=== PATIENT | male | born 1990 | race Hispanic/Latino ===

== ENCOUNTER 2020-05-17 10:53 | Inpatient (IN) | payer OTHER ==
[~2020-05-17] VITALS: Ht 188 cm; Wt 154.2 kg
[2020-05-17] MEDS ORDERED: SODIUM CHLORIDE 0.9% 1000ML 1,000 ML IV STA (11:09)
[2020-05-17] MEDS ORDERED: PANTOPRAZOLE 40 MG 10ML VIAL IV STA (11:09)
[2020-05-17] MEDS: CEFTRIAXONE SOD 1 GM/NS 50 ML 50 ML IV SCH (12:14)
[2020-05-17 12:30] LABS: BASOPHILS % 0.4 % (0.0-1.0); HEMATOCRIT 46.5 % (38.2-49.6); HEMOGLOBIN 15.7 g/dL (14.0-18.0); LYMPHOCYTES # (AUTO) 1.6 (1.0-3.2); LYMPHOCYTES % 30.6 % (18.0-39.1); MEAN CORPUSCULAR HEMOGLOBIN 30.7 pg (28-32); MEAN CORPUSCULAR HGB CONC 33.8 g/dL (31-35); MONOCYTES # (AUTO) 0.3 (0.2-0.8); MONOCYTES % 5.2 % (4.4-11.3); NEUTROPHILS # (AUTO) 3.3 (2.1-6.9); NEUTROPHILS % 63.2 % (38.7-80.0); PLATELET COUNT 155 x10e3/uL (140-360); RED BLOOD COUNT 5.11 x10e6/uL (4.3-5.7)
--- NOTE | 2020-05-17 12:33 | Diagnostic Imaging Report ---
EXAMINATION: CHEST SINGLE (PORTABLE) INDICATION: Hemoptysis, pneumonia COMPARISON: None FINDINGS: LINES/TUBES:None LUNGS:The lungs are moderately inflated. Hazy bilateral left greater than right airspace opacities. PLEURA:No pleural effusion or pneumothorax. MEDIASTINUM:The cardiomediastinal silhouette appears normal in size and shape. BONES/SOFT TISSUES:No acute osseous injury. ABDOMEN:No free air under the diaphragm. IMPRESSION: Hazy left greater than right airspace opacities compatible with provided history of pneumonia. Signed by: Cyn Sue MD on 05/17/2020 12:30 PM
[2020-05-17] MEDS ORDERED: SODIUM CHLORIDE 0.9% 1000ML 1,000 ML IV SCH (12:45)
[2020-05-17 12:51] LABS: INR 0.82; PROTHROMBIN TIME 11.8 seconds (11.9-14.5)
[2020-05-17 12:52] LABS: PARTIAL THROMBOPLASTIN TIME 29.5 seconds (23.8-35.5)
--- NOTE | 2020-05-17 12:56 | Emergency Department Note ---
History of Present Illnes History of Present Illness Chief Complaint: COVID PUI History of Present Illness This is a 29 year old male HERE FOR COUGH X5 DAYS THEN SPITTING UP BLOODY SPUTUM TODAY, SOB WITH MINIMAL EXERTION, CALLED PCP AND WAS ADVISED TO COME TO ER TO HAVE HGB CHECKED. NO OTHER COMPLAINTS. Historian: Patient Arrival Mode: Car Varnishing Unit Operator Required: No Onset (how long ago): day(s) (5) Location: NO PAIN Radiation: Reports non-radiation Severity: moderate Onset quality: gradual Timing of current episode: constant Progression: worsening Chronicity: new Context: Denies recent illness Relieving factors: none Exacerbating factors: none Associated symptoms: Reports denies other symptoms Past Medical/Family History Physician Review I have reviewed the patient's past medical and family history. Any updates have been documented here. Past Medical History Recent Fever: Yes Clinical Suspicion of Infectio: Yes New/Unexplained Change in Ment: No Past Medical History: None Past Surgical History: None Social History Smoking Cessation: Never Smoker Counseling Performed: No Alcohol Use: Occasional Any Illegal Drug Use: No TB Exposure/Symptoms: No Physically hurt or threatened: No Other Any Pre-Existing Lines (PICC,: No Is patient up to date on immun: No Last Flu: no Last Pneumovax: no Review of Systems Review of Systems Constitutional: Reports chills, Reports weakness EENTM: Reports no symptoms Cardiovascular: Reports no symptoms Respiratory: Reports cough, Reports hemoptysis, Reports dyspnea Gastrointestinal: Reports no symptoms Genitourinary: Reports no symptoms Musculoskeletal: Reports no symptoms Integumentary: Reports no symptoms Neurological: Reports no symptoms Psychological: Reports no symptoms Endocrine: Reports no symptoms Hematological/Lymphatic: Reports no symptoms Physical Exam Related Data Allergies: Coded Allergies: No Known Allergies (Unverified , 05/17/20) Triage Vital Signs Vital Signs Date Time Temp Pulse Resp B/P (MAP) Pulse Ox O2 Delivery O2 Flow Rate FiO2 05/17/20 10:55 100.0 92 24 126/81 93 Vital signs reviewed: Yes Physical Exam CONSTITUTIONAL Constitutional: Present well-developed, Present well-nourished HENT HENT: Present normocephalic, Present atraumatic, Present oropharynx clear/moist, Present nose normal HENT L/R: Present left ext ear normal, Present right ext ear normal EYES Eyes: Reports PERRL, Reports conjunctivae normal NECK Neck: Present ROM normal PULMONARY Pulmonary: Present effort normal, Present other (DECR BS'S THROUGHOUT) CARDIOVASCULAR Cardiovascular: Present regular rhythm, Present heart sounds normal, Present capillary refill normal, Present normal rate GASTROINTESTINAL Abdominal: Present soft, Present nontender, Present bowel sounds normal GENITOURINARY Genitourinary: Present exam deferred SKIN Skin: Present warm, Present dry MUSCULOSKELETAL Musculoskeletal: Present ROM normal NEUROLOGICAL Neurological: Present alert, Present oriented x 3, Present no gross motor or sensory deficits PSYCHOLOGICAL Psychological: Present mood/affect normal, Present judgement normal Results Laboratory Result Diagram: 05/17/20 1155 Laboratory Laboratory Tests Test 05/17/20 11:55 White Blood Count 5.19 x10e3/uL (4.8-10.8) Red Blood Count 5.11 x10e6/uL (4.3-5.7) Hemoglobin 15.7 g/dL (14.0-18.0) Hematocrit 46.5 % (38.2-49.6) Mean Corpuscular Volume 91.0 fL (81-99) Mean Corpuscular Hemoglobin 30.7 pg (28-32) Mean Corpuscular Hemoglobin Concent 33.8 g/dL (31-35) Red Cell Distribution Width 13.0 % (11.7-14.4) Platelet Count 155 x10e3/uL (140-360) Neutrophils (%) (Auto) 63.2 % (38.7-80.0) Lymphocytes (%) (Auto) 30.6 % (18.0-39.1) Monocytes (%) (Auto) 5.2 % (4.4-11.3) Eosinophils (%) (Auto) 0.0 % (0.0-6.0) Basophils (%) (Auto) 0.4 % (0.0-1.0) Neutrophils # (Auto) 3.3 (2.1-6.9) Lymphocytes # (Auto) 1.6 (1.0-3.2) Monocytes # (Auto) 0.3 (0.2-0.8) Eosinophils # (Auto) 0.0 (0.0-0.4) Basophils # (Auto) 0.0 (0.0-0.1) Absolute Immature Granulocyte (auto 0.03 x10e3/uL (0-0.1) Lab results reviewed: Yes Imaging Imaging results reviewed: Yes Impressions Procedure: [id number] DX/CHEST SINGLE (PORTABLE) Exam Date: 05/17/20 Exam Time: 1214 REPORT STATUS: Signed EXAMINATION: CHEST SINGLE (PORTABLE) INDICATION: Hemoptysis, pneumonia COMPARISON: None FINDINGS: LINES/TUBES:None LUNGS:The lungs are moderately inflated. Hazy bilateral left greater than right airspace opacities. PLEURA:No pleural effusion or pneumothorax. MEDIASTINUM:The cardiomediastinal silhouette appears normal in size and shape. BONES/SOFT TISSUES:No acute osseous injury. ABDOMEN:No free air under the diaphragm. IMPRESSION: Hazy left greater than right airspace opacities compatible with provided history of pneumonia. Signed by: Cyn Sue MD on 05/17/2020 12:30 PM Procedures 12 Lead ECG Interpretation ECG Interpretation : ECG: ECG 1 Varnishing Unit Operator: Interpreted by ED physician Date: May 17, 2020 Time: 11:56 Rhythm: sinus rhythm Rate: normal (90) QRS axis: left ST segments normal: Yes T waves normal: Yes Other findings: LVH Clinical Impression: abnormal ECG Assessment & Plan Medical Decision Making MDM LIKELY COVID, COUGH/HEMOPTYSIS AND SOB - WHEN I WALKED PT IN-PLACE FOR 1 MIN, HE BECAME MODERATELY TACHYPNEIC AND O2 SAT WENT TO 88% ON RA - CHECK CBC, CHEM'S, ECG, CARDIAC ENZYMES, BLD CX'S, LACTIC, UA/CX, COVID SWAB - R/O PNEUMONIA, COVID19, CHF, STEMI/NSTEMI, ELECTROLYTE ABNL Reassessment Reassessment ADMIT DR MADSEN, CONSULT TO ELLEN JOHNSON (I SPOKE WITH ALL) Assessment & Plan Final Impression: (1) Pneumonia (2) Hypoxia Depart Disposition: ADMITTED Last Vital Signs Date Time Temp Pulse Resp B/P (MAP) Pulse Ox O2 Delivery O2 Flow Rate FiO2 05/17/20 12:13 100.8 86 18 104/59 90 Medications in the ED Pantoprazole Sodium 40 mg ONCE STAT IV Last administered on 05/17/20at 12:14; Admin Dose 40 MG; Start 05/17/20 at 11:09; Stop 05/17/20 at 11:23; Status DC Sodium Chloride 1,000 ml @ 0 mls/hr Q0M STAT IV Last administered on 05/17/20at 12:14; Admin Dose 999 MLS/HR; Start 05/17/20 at 11:09; Stop 05/17/20 at 11:23; Status DC Ceftriaxone Sodium 50 ml @ 100 mls/hr Q24H IV Last administered on 05/17/20at 12:14; Admin Dose 100 MLS/HR; Start 05/17/20 at 11:30; Stop 05/24/20 at 11:29 Azithromycin 250 ml @ 200 mls/hr DAILY IV ; Start 05/17/20 at 12:00; Stop 05/24/20 at 11:59 CUONG SHEPHERD MD May 17, 2020 12:56
[2020-05-17 13:06] LABS: ALANINE AMINOTRANSFERASE 94 IU/L (0-55); ALBUMIN 3.6 g/dL (3.5-5.0); ALBUMIN/GLOBULIN RATIO 1.1 (0.8-2.0); ALKALINE PHOSPHATASE 45 IU/L (40-150); ANION GAP 14.8 mmol/L (8-16); BLOOD UREA NITROGEN 8 mg/dL (7-26); BUN/CREATININE RATIO 10 (6-25); CALCIUM 8.7 mg/dL (8.4-10.2); CARBON DIOXIDE 27 mmol/L (22-29); CHLORIDE 101 mmol/L (98-107); CREATINE KINASE 372 IU/L (30-200); CREATININE, SERUM 0.79 mg/dL (0.72-1.25); EST GLOMERULAR FILTRATION RATE > 60 ML/MIN (60-); POTASSIUM 3.8 mmol/L (3.5-5.1); SODIUM 139 mmol/L (136-145)
[2020-05-17 13:10] LABS: B-TYPE NATRIURETIC PEPTIDE2 < 10.0 pg/mL (0-100)
--- NOTE | 2020-05-17 13:19 | NUR ---
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
[2020-05-17 13:20] LABS: GLUCOSE 96 mg/dL (74-118)
--- NOTE | 2020-05-17 13:38 | NUR ---
REPORT CALLED TO [facility] IN COVID UNIT.
[2020-05-17] MEDS: AZITHROMYCIN 500MG/NS 250 ML 250 ML IV SCH (14:01)
[2020-05-17 15:14] VITALS: BP 100/62
[2020-05-17 15:20] VITALS: BP 100/62
[2020-05-17 15:25] VITALS: BP 100/62
[2020-05-17] MEDS ORDERED: ZOLPIDEM TARTRATE 5 MG TAB PO PRN ×2 (15:30→21:00)
[2020-05-17] MEDS: GUAIFENESIN/CODEINE 10 ML CUP PO PRN (15:56)
[2020-05-17] MEDS: ACETAMINOPHEN 325 MG TAB PO PRN (15:56)
--- NOTE | 2020-05-17 18:52 | Consultation ---
DATE OF CONSULTATION: Pulmonary Critical Care Consultation CHIEF COMPLAINT: Fever, dyspnea, and hemoptysis. HISTORY OF PRESENT ILLNESS: The patient is a 29-year-old man. He reports being ill for about a week. He has had fevers. He has some mild dyspnea. He also had a COVID test that was positive. Today, he had small amount of hemoptysis. He called his primary doctor, who encouraged him to go to the emergency department. PAST SURGICAL HISTORY: None. PAST MEDICAL HISTORY: 1. No prior history of respiratory problems. 2. No diabetes. 3. No hypertension. ALLERGIES: NO KNOWN DRUG ALLERGIES. FAMILY HISTORY: Noncontributory. SOCIAL HISTORY: The patient does not smoke. He does not vape. He is not a drinker. REVIEW OF SYSTEMS: He reports fevers. There are no headaches. He has no neck pain. He has no chest pain. He does note some cough with some mild hemoptysis. He has some dyspnea. He has no abdominal pain. He has no nausea or vomiting. He does not complain of any leg edema. PHYSICAL EXAMINATION: VITAL SIGNS: The patient is afebrile. The blood pressure is 100/62 and saturation is 98% on 2 L. HEENT: Shows no facial swelling or erythema. CARDIAC: Reveals regular rate and rhythm with normal S1 and S2. LUNGS: Auscultation of lungs reveals clear breath sounds bilaterally. There is no wheezing. ABDOMEN: Soft and nontender. There is no rebound or guarding. EXTREMITIES: Shows no leg edema or calf tenderness. There is no cyanosis or clubbing. SKIN: Shows no rashes. NEUROLOGICAL: Shows no focal abnormalities. LABORATORY DATA: White blood cell count is 5.2 and the hemoglobin is 15.7. The platelet count is 155. BUN to creatinine ratio is normal. Other electrolytes are within normal limits. COVID-19 test is pending. RADIOGRAPHIC DATA: Chest x-ray shows hazy left greater than right airspace opacities. IMPRESSION: Viral pneumonia and COVID-19 infection. PLAN: 1. Judicious use of IV fluids. 2. Antibiotics. 3. Guaifenesin with codeine. 4. DVT prophylaxis. 5. Oxygen as needed. Brad Mckeon MD [facility]ATH[facility] /[id number]
[2020-05-17 18:53] LABS: CLARITY,URINE CLEAR (CLEAR); COLOR,URINE YELLOW (YELLOW); LEUKOCYTE ESTERASE ,URINE NEGATIVE (NEGATIVE); NITRITE,URINE NEGATIVE (NEGATIVE)
[2020-05-17 18:54] LABS: BILIRUBIN,URINE NEGATIVE (NEGATIVE); KETONES,URINE 1+ (NEGATIVE); PROTEIN,URINE DIPSTICK NEGATIVE (NEGATIVE); URINE UROBILINOGEN 1 mg/dL (0.2 - 1)
[2020-05-17 19:04] LABS: BACTERIA,URINE FEW /HPF; EPITHELIAL CELLS,URINE FEW /LPF; RBC,URINE 0-5 /HPF (0-5)
[2020-05-17 20:00] VITALS: BP 98/58
[2020-05-17] MEDS ORDERED: ENOXAPARIN SOD INJ 40 MG/0.4 ML SYR SC SCH ×2 (21:00)
[2020-05-17] MEDS: FAMOTIDINE 20 MG/2 ML VIAL IV SCH (21:00)
[2020-05-17] MEDS: ENOXAPARIN INJ 80 MG/0.8 ML SYR SC SCH (21:00)
[2020-05-17] MEDS ORDERED: HYDRALAZINE HCL 20 MG/ML VIAL IV PRN (21:15)
[2020-05-17] MEDS ORDERED: ONDANSETRON HCL INJ 2MG/ML 2ML 2 MG/ML VIAL IV PRN (21:15)
[2020-05-17 21:36] VITALS: BP 98/58
--- NOTE | 2020-05-17 22:39 | Consultation ---
DATE OF CONSULTATION: REASON FOR CONSULTATION: COVID-19 pneumonia, hypoxemia. HISTORY OF PRESENT ILLNESS: This is a very pleasant 29-year-old [place] male, denies any past medical history. He has been sick for 7 days. He went to an outside urgent care few days ago because of having fever. He was told that if he gets short of breath he should go to the hospital. In the last couple of days he started to get worse. The patient came to the emergency room where he was evaluated and he was admitted. He is COVID-19 positive. PAST MEDICAL HISTORY: Denies. PAST SURGICAL HISTORY: Denies. ALLERGIES: NKA. SOCIAL HISTORY: There is no smoking, drug abuse, or alcohol abuse. FAMILY HISTORY: Unremarkable. LABORATORY DATA: Reviewed. Chest x-ray showed hazy bilateral opacities in the lungs. His white count 5.19, hemoglobin 15. Sodium 139, potassium 3.8, creatinine 0.79, his glucose was 96, AST 91, ALT 94. PHYSICAL EXAMINATION: GENERAL: Currently alert, oriented, does not seem in acute distress. VITAL SIGNS: Stable, afebrile. Temperature 100.7, heart rate of 87, respiratory rate 18 on 2 L with O2 sat of 98%. HEENT: Not icteric. NECK: Supple. CHEST: Crackles bilateral. HEART: S1, S2. No murmurs. ABDOMEN: Soft. IMPRESSION: Coronavirus disease-19 pneumonia present on admission, concerned about superimposed bacterial pneumonia. We will put him on Rocephin and azithromycin. We will start him on Lovenox 0.5 mg/kg q.12 hours. Oxygen as needed, vitamin C, vitamin D, zinc supplement. Reassess in the morning. Discussed with the patient. Discussed with medical team. MD JESUS Samaniego/CATHY /[id number]
[2020-05-18] VITALS: BP 108/64
[2020-05-18] MEDS ORDERED: SODIUM CHLORIDE 0.9% 1000ML 0 ML ONE (00:08)
[2020-05-18] MEDS: GUAIFENESIN/CODEINE 10 ML CUP PO PRN ×2 (00:37→11:47)
[2020-05-18 04:00] VITALS: BP 114/65
[2020-05-18 05:41] LABS: BASOPHILS % 0.2 % (0.0-1.0); EOSINOPHILS % 0.2 % (0.0-6.0); HEMATOCRIT 43.8 % (38.2-49.6); HEMOGLOBIN 14.7 g/dL (14.0-18.0); LYMPHOCYTES % 38.1 % (18.0-39.1); MEAN CORPUSCULAR HEMOGLOBIN 31.8 pg (28-32); MEAN CORPUSCULAR HGB CONC 33.6 g/dL (31-35); MEAN CORPUSCULAR VOLUME 94.8 fL (81-99); MONOCYTES # (AUTO) 0.3 (0.2-0.8); MONOCYTES % 5.4 % (4.4-11.3); NEUTROPHILS % 55.7 % (38.7-80.0); PLATELET COUNT 155 x10e3/uL (140-360); RED BLOOD COUNT 4.62 x10e6/uL (4.3-5.7); RED CELL DISTRIBUTION WIDTH 13.3 % (11.7-14.4)
[2020-05-18 06:06] LABS: ALANINE AMINOTRANSFERASE 75 IU/L (0-55); ALBUMIN 3.2 g/dL (3.5-5.0); ALBUMIN/GLOBULIN RATIO 1.1 (0.8-2.0); ALKALINE PHOSPHATASE 39 IU/L (40-150); BLOOD UREA NITROGEN 6 mg/dL (7-26); BUN/CREATININE RATIO 8 (6-25); CARBON DIOXIDE 29 mmol/L (22-29); CHLORIDE 104 mmol/L (98-107); CREATININE, SERUM 0.76 mg/dL (0.72-1.25); EST GLOMERULAR FILTRATION RATE > 60 ML/MIN (60-); GLUCOSE 93 mg/dL (74-118); SODIUM 139 mmol/L (136-145)
[2020-05-18 08:00] VITALS: BP 112/65
[2020-05-18] MEDS ORDERED: PROAIR HFA INH8.5 GM INH (09:19)
[2020-05-18] MEDS ORDERED: Guaifenesin/Codeine PO (09:19)
[2020-05-18] MEDS: CHOLECALCIFEROL 400 UNIT TAB PO SCH ×2 (09:23→17:14)
[2020-05-18] MEDS: ENOXAPARIN INJ 80 MG/0.8 ML SYR SC SCH (09:23)
[2020-05-18] MEDS: AZITHROMYCIN 500MG/NS 250 ML 250 ML IV SCH (09:23)
[2020-05-18] MEDS: FAMOTIDINE 20 MG/2 ML VIAL IV SCH (09:23)
[2020-05-18] MEDS: ASCORBIC ACID 500 MG TAB PO SCH ×2 (09:23→17:14)
[2020-05-18] MEDS: ZINC SULFATE 220 MG CAP PO SCH ×2 (09:23→17:14)
--- NOTE | 2020-05-18 09:26 | NUR ---
patient on 1L of oxygen nasal cannula. will repeat walk test on room air next time patient needs to get out of bed.
[2020-05-18 09:44] VITALS: BP 112/65
[2020-05-18] MEDS: CEFTRIAXONE SOD 1 GM/NS 50 ML 50 ML IV SCH (11:47)
[2020-05-18 12:00] VITALS: BP 100/65
--- NOTE | 2020-05-18 12:51 | NUR ---
CALL RECEIVED REQUESTING HOME O22L/NC. PT SATTING IN THE 90'S, BUT FAMILY IS WILLING TO PAY [place] FOR O2. SPOKE W DTRHERMELINDO V. DISCUSSED LIST OF [place] PAY OPTIONS. CALLED YANE IRAHETA TO VERIFY PT OK TO RECEIVE O2. HERMELINDO AGREED TO $120/MO. YANE EXPLAINED PROCESS OVER THE PHONE. STATES THE BUSINESS OFFICE WILL CALL HERMELINDO TO ARRANGE PAYMENT W CREDIT CARD OR DEBIT CARD. REFERRAL WAS FAXED TO JORGE LUIS @ OFF: [phone] / FAX: [phone].
[2020-05-18 16:00] VITALS: BP 101/58
--- NOTE | 2020-05-18 16:00 | NUR ---
walk test completed for patient on room air. patient dropped to 87% while ambulating. placed back on oxygen. Attending & case manager specialist notified.
[2020-05-18] MEDS: ACETAMINOPHEN 325 MG TAB PO PRN ×2 (16:33→17:14)
--- NOTE | 2020-05-18 17:00 | NUR ---
oxygen delivered to room.
--- NOTE | 2020-05-18 17:45 | NUR ---
patient discharged. IV access removed- dressing applied and bleeding controlled. instructed on oxygen use and prescriptions given to patient. clear on discharge instructions. spoke to patient's and answered all questions of hers. patient wheeled off unit in stable condition in mask with oxygen to 's personal vehicle.
--- NOTE | 2020-05-18 19:02 | Progress Note ---
DATE: SUBJECTIVE: The patient feels better. He is not having cough or fever. He has no dyspnea. He has no diarrhea. PHYSICAL EXAMINATION: VITAL SIGNS: Blood pressure is 100/65, saturation is 93%. HEENT: Shows no facial swelling or erythema. CARDIAC: Reveals regular rate and rhythm with normal S1, S2. LUNGS: Auscultation of lungs reveals clear breath sounds bilaterally. There is no wheezing. ABDOMEN: Soft and nontender. There is no rebound or guarding. EXTREMITIES: Shows no leg edema or calf tenderness. There is no cyanosis or clubbing. SKIN: Shows no rashes. NEUROLOGICAL: Shows no focal abnormalities. LABORATORY DATA: CBC is within normal limits. BUN to creatinine ratio is normal. Electrolytes are normal. Albumin is 3.2. IMPRESSION: Viral pneumonia and COVID-19 infection. PLAN: 1. Discharge home. 2. Albuterol inhaler as needed. 3. Cough syrup as needed. Brad Mckeon MD [facility]/[place] /[id number]
--- NOTE | 2020-05-19 09:35 | Progress Note ---
DATE: SUBJECTIVE: Mr. Gerber is feeling much better. He has had no complaints. REVIEW OF SYSTEMS: He is just weak, otherwise, unremarkable. PHYSICAL EXAMINATION: GENERAL: He is alert, oriented, does not seem to be in acute distress. VITAL SIGNS: Stable, afebrile. HEENT: Not icteric. NECK: Supple. CHEST: Clear. HEART: S1 and S2. No murmur. ABDOMEN: Soft. IMPRESSION: Coronavirus disease 2019, getting better. The patient will be discharged home. Albuterol 2 puffs q.6 hours p.r.n. cough. Tylenol p.r.n. pain. To push p.o. fluid. Bedrest to be home quarantine for 2 weeks, multivitamin supplement, vitamin C and D supplement, and zinc supplement encouraged, to be checked in 2 weeks. MD JESUS Samaniego/[place] /[id number]
--- NOTE | 2020-05-20 10:53 | Discharge Summary ---
ADMISSION DIAGNOSES: Coronavirus disease 2019 pneumonia, present on admission; morbid obesity with a BMI of 43.7; transaminitis. DISCHARGE DIAGNOSES: Coronavirus disease 2019 pneumonia, present on admission; morbid obesity with a BMI of 43.7; transaminitis. HISTORY: None. SURGICAL HISTORY: None. FAMILY HISTORY: The patient's mother has diabetes. The patient's grandfather had a stroke. SOCIAL HISTORY: Occasional alcohol use. HOSPITAL COURSE: A 29-year-old male admits to being sick for about a week. Yesterday, he started having dyspnea and shortness of breath. His PCP advised him to come to the ER. On admission, chest x-ray showed hazy left greater than right airspace opacity compatible with pneumonia. COVID was positive. The patient was started on Zithromax, Rocephin, Lovenox, zinc, vitamin C, vitamin D. ID and Pulmonology were consulted. The patient is on room air. SpO2 was low at 90% on room air. With ambulation, the patient dropped to 87%, so he was discharged home with prescription for albuterol and guaifenesin with codeine as well as oxygen. He does not need antibiotics per ID recommendation. The patient will discharge home and follow up with primary care in 1 to [address] Sanon as discussed. The patient understands instructions and agrees to plan. Vital signs stable, the patient is afebrile. Dictated by Alejandra Guzmán NP MD [facility] /[id number]
== END 2020-05-18 18:35 | disposition home or self-care (01) | DRG 177 ==
LOC: ER 10:53 → ERHOLD 12:36 → IMCU 14:30
PROVIDERS: ADMIT Internal Medicine; ATTEND Internal Medicine
DX: U07.1 COVID-19 (principal); J12.9 Viral pneumonia, unspecified; Z68.41 Body mass index [BMI] 40.0-44.9, adult; E66.01 Morbid (severe) obesity due to excess calories; R74.0 Nonspecific elevation of levels of transaminase and lactic acid dehydrogenase [LDH]
CPT/HCPCS: 36415; 71045; 80053; 81001; 82550; 82553; 83605; 83735; 83880; 84484; 85025; 85610; 85730; 87040; 87086; 87635; 93005; 99284; J0456; J0696; J1650; J7030